=== PATIENT | female | born 1995 | race Hispanic/Latino ===

== ENCOUNTER 2018-08-02 11:27 | Emergency (ER) | payer BC ==
[2018-08-02] MEDS ORDERED: Acetaminophen 500 MG TAB ONE (11:53)
[2018-08-02 12:08] LABS: Bilirubin Negative (Negative); Blood, Urine Trace (Negative); Clarity Slightly Cloudy (Clear); Glucose, Urine (Dipstick) Negative (Negative); Leukocyte Moderate (Negative); Nitrite Negative (Negative); Protein, Urine (Dipstick) Negative (Neg-Trace); Specific Gravity, Urine 1.015 (1.005-1.030); pH, Urine 7.5 (5.0-9.0)
[2018-08-02 12:14] LABS: Bacteria/HPF 1+ HPF (None Seen); RBC/HPF 0-3 HPF (0-3)
[2018-08-02 12:14] LABS: #Basophils 0.1 thou/uL (0.0-0.2); #Eosinphils 0.1 thou/uL (0.0-0.7); #Lymphocytes 1.8 thou/uL (1.20-3.40); #Monocytes 0.6 thou/uL (0.11-0.59); #Neutrophils 5.8 thou/uL (1.40-6.50); %Basophils 1.2 % (0.0-1.0); %Eosinophils 0.7 % (0.0-10.0); %Lymphocytes 21.5 % (21.0-51.0); %Monocytes 6.5 % (0.0-10.0); Hemoglobin 13.8 g/dL (12.0-16.0); Mean Corpuscular HGB CONC 34.8 g/dL (32.0-36.0); Mean Corpuscular Hemoglobin 29.6 pg (27.0-31.0); Mean Platelet Volume 11.2 fL (7.4-10.4); Platelet Count 165 thou/uL (130-400); RBC Distribution Width 12.5 % (11.5-14.5); Red Blood Cell (RBC) Count 4.67 mill/uL (4.20-5.40); White Blood Cell (WBC) Count 8.3 thou/uL (4.8-10.8)
[2018-08-02 12:15] LABS: Hyaline Casts/LPF 0-3 HYALINE CAST LPF (0-3 Hyaline)
[2018-08-02 12:25] LABS: ALT (SGPT) 16 U/L (8-55); AST (SGOT) 12 U/L (5-34); Albumin 4.4 g/dL (3.5-5.0); Alkaline Phosphatase 46 U/L (40-150); Anion Gap 14 mmol/L (10-20); BUN (Urea Nitrogen) 8 mg/dL (7.0-18.7); Bilirubin, Total 0.5 mg/dL (0.2-1.2); Calc. Creatinine Clearance 0 mL/min (70-130); Calcium 9.7 mg/dL (7.8-10.44); Carbon Dioxide 24 mmol/L (22-29); Chloride 103 mmol/L (98-107); Estimated GFR-MDRD Greater than 90; Globulin 3.5 g/dL (2.4-3.5); Glucose 90 mg/dL (70-105); Potassium 3.6 mmol/L (3.5-5.1); Protein, Total 7.9 g/dL (6.0-8.3); Sodium 137 mmol/L (136-145)
== END 2018-08-02 12:58 | disposition home or self-care (01) ==
LOC: SCSER 11:27
DX: O23.41 Unspecified infection of urinary tract in pregnancy, first trimester (principal); Z3A.01 Less than 8 weeks gestation of pregnancy
CPT/HCPCS: 36415; 80053; 81003; 81015; 84702; 85025; 87086; 99283

== ENCOUNTER 2019-04-29 18:53 | Observation (INO) | payer BC, MEDICAID, SELFPAY ==
[2019-04-29] MEDS ORDERED: Ondansetron PF 4 MG/2 ML Vial ONE (19:24)
[2019-04-29 19:39] LABS: Bilirubin Negative (Negative); Blood, Urine Trace (Negative); Clarity Slightly Cloudy (Clear); Glucose, Urine (Dipstick) Negative (Negative); Leukocyte Large (Negative); Nitrite Negative (Negative); Protein, Urine (Dipstick) Negative (Neg-Trace)
[2019-04-29 19:41] LABS: #Basophils 0.1 thou/uL (0.0-0.2); #Eosinphils 0.2 thou/uL (0.0-0.7); #Lymphocytes 1.8 thou/uL (1.20-3.40); #Monocytes 0.6 thou/uL (0.11-0.59); #Neutrophils 4.3 thou/uL (1.40-6.50); %Basophils 1.3 % (0.0-1.0); %Eosinophils 2.2 % (0.0-10.0); %Lymphocytes 25.5 % (21.0-51.0); %Monocytes 8.5 % (0.0-10.0); %Neutrophils 62.4 % (42.0-75.0); Hemoglobin 13.5 g/dL (12.0-16.0); Mean Corpuscular HGB CONC 34.6 g/dL (32.0-36.0); Mean Corpuscular Hemoglobin 29.7 pg (27.0-31.0); Mean Corpuscular Volume 85.7 fL (78.0-98.0); Mean Platelet Volume 10.4 fL (7.4-10.4); Platelet Count 195 thou/uL (130-400); RBC Distribution Width 12.1 % (11.5-14.5); Red Blood Cell (RBC) Count 4.54 mill/uL (4.20-5.40); White Blood Cell (WBC) Count 6.9 thou/uL (4.8-10.8)
[2019-04-29 19:42] LABS: Pregnancy Test - Urine (BHCG) POSITIVE (Negative); Pregu Control Background? CLEAR/WHITE (CLR/WHITE); Pregu Control Bar Appear? YES (CONTROL BAR); Specific Gravity 1.015 (1.002-1.036)
[2019-04-29 19:52] LABS: Bacteria/HPF Rare-Few HPF (None Seen); Epithelial Cast None Seen LPF (None Seen)
[2019-04-29 19:56] LABS: ALT (SGPT) 700 U/L (8-55); AST (SGOT) 518 U/L (5-34); Albumin 4.8 g/dL (3.5-5.0); Alkaline Phosphatase 175 U/L (40-110); Anion Gap 15 mmol/L (10-20); BUN (Urea Nitrogen) 8 mg/dL (7.0-18.7); Bilirubin, Total 1.1 mg/dL (0.2-1.2); CK (CPK) 101 U/L (29-168); Calc. Creatinine Clearance 0 mL/min (70-130); Calcium 9.7 mg/dL (7.8-10.44); Carbon Dioxide 24 mmol/L (22-29); Chloride 102 mmol/L (98-107); Estimated GFR-MDRD Greater than 90; Globulin 3.5 g/dL (2.4-3.5); Glucose 102 mg/dL (70-105); Lipase 39 U/L (8-78); Potassium 3.6 mmol/L (3.5-5.1); Protein, Total 8.3 g/dL (6.0-8.3); Sodium 137 mmol/L (136-145)
--- NOTE | 2019-04-29 20:38 | ULT ---
Gallbladder ultrasound: Multiple grayscale images of right upper quadrant obtained according to protocol. INDICATION: Pain FINDINGS: Liver: Increased echogenicity Gallbladder: Multiple gallstones, with moderate distention Gallbladder wall: Normal. Box's Sign: Positive. Common bile duct is 4 mm, within normal limits of size Ascites: None IMPRESSION: Multiple gallstones within a moderately distended gallbladder, and a positive Box sign. Recommend clinical correlation and, as necessary, surgical consultation for further assessment of associated cholecystitis. Increased echogenicity of the liver indicative of hepatic steatosis.
--- NOTE | 2019-04-29 20:57 | ULT ---
US Pelvic transabdominal and transvaginal, with Doppler color flow and spectral analysis HISTORY: Pain COMPARISON: None Within the uterus, there is a small hypoechoic focus indicative of a gestational sac with a small int ernal yolk sac as well as a pole with cardiac activity of 106 bpm documented. Sonographic findings indicate gestational age of approximately 6 weeks 0 days. Doppler evaluation rev eals flow to each ovary. No evidence of a significant subchorionic hemorrhage or significant free pelvic fluid. IMPRESSION: Early live intrauterine gestation, as above. Recommend continued age-appropriate follow-u p Transcribed Date/Time: 04/29/2019 9:02 PM
[2019-04-29] MEDS ORDERED: cefTRIAXone\\ROCEPHIN 2 GM VIAL ONE (21:14)
[2019-04-29] MEDS ORDERED: Sodium Chloride 0.9% 100 ML ONE (21:15)
[2019-04-29] MEDS ORDERED: Ondansetron PF 4 MG/2 ML Vial IVP PRN (22:54)
[2019-04-29 22:55] VITALS: BMI 31.2
[2019-04-29] MEDS ORDERED: Morphine 4 MG/ML VIAL SLOW IVP PRN (22:56)
[2019-04-29] MEDS: Sodium Chloride 0.9% 1,000 ML IV SCH (23:21)
[2019-04-30 05:11] LABS: ALT (SGPT) 541 U/L (8-55); AST (SGOT) 276 U/L (5-34); Albumin 3.6 g/dL (3.5-5.0); Alkaline Phosphatase 142 U/L (40-110); Anion Gap 7 mmol/L (10-20); BUN (Urea Nitrogen) 5 mg/dL (7.0-18.7); Bilirubin, Total 0.6 mg/dL (0.2-1.2); Calc. Creatinine Clearance 146 mL/min (70-130); Calcium 8.5 mg/dL (7.8-10.44); Carbon Dioxide 25 mmol/L (22-29); Chloride 107 mmol/L (98-107); Estimated GFR-MDRD Greater than 90; Globulin 2.8 g/dL (2.4-3.5); Glucose 97 mg/dL (70-105); Lipase 24 U/L (8-78); Protein, Total 6.4 g/dL (6.0-8.3); Sodium 135 mmol/L (136-145)
[2019-04-30 05:12] LABS: #Basophils 0.1 thou/uL (0.0-0.2); #Eosinphils 0.2 thou/uL (0.0-0.7); #Lymphocytes 1.8 thou/uL (1.20-3.40); #Monocytes 0.5 thou/uL (0.11-0.59); #Neutrophils 2.7 thou/uL (1.40-6.50); %Basophils 1.2 % (0.0-1.0); %Eosinophils 3.5 % (0.0-10.0); %Lymphocytes 34.6 % (21.0-51.0); %Monocytes 8.7 % (0.0-10.0); %Neutrophils 52.1 % (42.0-75.0); Hemoglobin 11.4 g/dL (12.0-16.0); Mean Corpuscular HGB CONC 34.3 g/dL (32.0-36.0); Mean Corpuscular Hemoglobin 30.2 pg (27.0-31.0); Mean Corpuscular Volume 87.9 fL (78.0-98.0); Platelet Count 143 thou/uL (130-400); RBC Distribution Width 12.2 % (11.5-14.5); Red Blood Cell (RBC) Count 3.76 mill/uL (4.20-5.40); White Blood Cell (WBC) Count 5.2 thou/uL (4.8-10.8)
[2019-04-30 08:06] LABS: HBCM Index 0.07 S/CO (0-0.79); HBSAg Index 0.17 S/CO (0-0.99); Hep A IgM AB Non-Reactive (NonReactive); Hep A IgM S/CO 0.23 S/CO (0-0.79); Hep B Surf Ag Non-Reactive S/CO (NonReactive); Hep C IgG Ab Non-Reactive (NonReactive); Hepatitis B Core IgM Abs Non-Reactive (NonReactive)
--- NOTE | 2019-04-30 13:05 | HP ---
CHIEF COMPLAINT: Right upper quadrant pain. HISTORY OF PRESENT ILLNESS: This is a 23-year-old female, who presents with acute onset right upper quadrant pain last night. She had a pasta meal for lunch. Pain described as 8/10, sharp in the right upper quadrant radiating around to her right back. Not associated with fever, chills, nausea, or vomiting. No diarrhea. She is newly diagnosed as with approximate 6-week gestational age. Her liver tests were elevated. She has no hepatitis exposure. No previous known history of jaundice or pancreatitis. MEDICAL HISTORY: Otherwise negative. SURGICAL HISTORY: Negative. MEDICATIONS: vitamins. ALLERGIES: NO KNOWN DRUG ALLERGIES. SOCIAL HISTORY: No smoking, alcohol, or other drugs. REVIEW OF SYSTEMS: Ten-system review of systems is otherwise negative unless described above. PHYSICAL EXAMINATION: VITAL SIGNS: Blood pressure is 100/66, pulse 83, respirations 14. She is afebrile. HEENT: Sclerae are anicteric. Oropharynx, clear. NECK: No lymphadenopathy. CHEST: Clear. HEART: Regular rate and rhythm. ABDOMEN: Soft, minimally tender in the right upper quadrant. No ischemia or edema to extremities. LABORATORY DATA: White blood cell count is 5, hemoglobin 11. Sodium 135, potassium is 4.0, creatinine 0.67. AST and ALT are 276 and 541 with an alkaline phosphatase of 142. Normal lipase. IMAGING STUDIES: Ultrasound shows gallstones, normal common bile duct. ASSESSMENT: Likely acute cholecystitis with uncertain etiology of this elevation of liver tests. Discussed with Dr. Selby. Could be hepatitis, could be medication reaction, could be related to . Given the location of her symptoms, certainly biliary colic or even less likely common bile duct stone is a possibility. PLAN: Today, laparoscopic cholecystectomy with intraoperative cholangiogram. Risks, benefits, and alternatives were discussed. She does understand that there were teratogenic effects potentially on the baby with surgery during the 1st trimester. However, this is controversial, mostly hypothetical, and there has never been any scientific proof that is the case, in fact society of endoscopic surgeons recommend laparoscopic procedures in the 1st trimester of if needed. Risks, benefits, and alternatives were discussed. She gives consent. We will do this today. Job ID: [id number]
[2019-04-30] MEDS ORDERED: Fentanyl 100 MCG/2 ML VIAL ONE ×4 (15:00→17:09)
[2019-04-30] MEDS ORDERED: Iothalamate Meglumine 60% 50 ML VIAL FS ONE (15:04)
[2019-04-30] MEDS ORDERED: Bupivacaine/Epinephrine 0.25% 30 ML VIAL ONE (15:04)
[2019-04-30] MEDS ORDERED: Sodium Chloride 0.9% 100 ML ONE (15:12)
[2019-04-30] MEDS ORDERED: cefOXitin 2 GM VIAL ONE (15:12)
--- NOTE | 2019-04-30 16:24 | RAD ---
Intraoperative cholangiogram fluoroscopy HISTORY: Acute cholecystitis findings: Intraoperative fluoroscopy was provided for cholangiogram as p erformed by Dr. Davenport. Single spot fluoroscopic image shows distended common bile duct to be opacified without filling defects reliably demonstrated, aside from a meniscus at the central portion of the duct. Contrast has not passed into the duodenum. Consider impacted stone at the ampulla or other cause of biliary obstruction. Fluoroscopy time 14 seconds.
[2019-04-30] MEDS ORDERED: Dextrose 5% in Water 1,000 ML IV PRN (17:49)
[2019-04-30] MEDS ORDERED: Promethazine HCl 25 MG/ML VIAL IM PRN (17:49)
[2019-04-30] MEDS ORDERED: Ondansetron PF 4 MG/2 ML Vial IVP PRN (17:49)
[2019-04-30] MEDS ORDERED: Morphine 4 MG/ML VIAL SLOW IVP PRN (17:49)
[2019-04-30] MEDS ORDERED: Calcium Carbonate 500 MG ChewTAB PO PRN (17:49)
[2019-04-30] MEDS ORDERED: HYDROcodone/Acetaminophen 7.5/325 mg Tablet PO PRN (17:49)
[2019-04-30] MEDS ORDERED: Mag-Al 1200 mg/1200 mg/30 ML UDCUP PO PRN (17:49)
[2019-04-30] MEDS ORDERED: Dextrose 50% Abboject 50 ML SYRINGE SLOW IVP PRN (17:49)
[2019-04-30] MEDS: D5 1/2 NS w/20 mEq KCL 1,000 ML IV SCH ×2 (18:26→19:48)
[2019-04-30] MEDS: Famotidine 20 MG TAB PO SCH (19:47)
[2019-04-30] MEDS: Morphine 2 MG/ML SYRINGE SLOW IVP PRN (19:49)
[2019-04-30] MEDS: Famotidine/PF 20 mg/2ml Vial SLOW IVP SCH (19:49)
--- NOTE | 2019-04-30 23:17 | OP ---
DATE OF PROCEDURE: 04/30/2019 PREOPERATIVE DIAGNOSIS: Acute cholecystitis. POSTOPERATIVE DIAGNOSES: Acute cholecystitis and choledocholithiasis. PROCEDURES PERFORMED: Laparoscopic cholecystectomy with intraoperative cholangiogram. ANESTHESIA: General. ESTIMATED BLOOD LOSS: Minimal. COMPLICATIONS: None. SPECIMENS: Gallbladder. FINDINGS: Distal common bile duct stone with obstruction, dilated common bile duct and intrahepatic ducts. DESCRIPTION OF PROCEDURE: The patient was taken to the operating room and laid supine on the operating room table. After general anesthetic was obtained, the abdomen was shaved, prepped, and draped in a sterile fashion. An incision was made above the umbilicus. Cautery was used to dissect down to and score the fascia. Abdominal cavity was entered bluntly using a Diane clamp. Holding stitch of PDS was placed on each side of the fascia. Victor M trocar was placed. High-flow pneumoperitoneum was obtained. Upper midline 5 mm port as well as two right upper quadrant 5 mm ports were placed under direct visualization. The gallbladder was retracted from the gallbladder fossa. The peritoneum was opened anteriorly and posteriorly. The critical view of triangle was seen showing only the cystic duct and cystic artery branching medial to lateral and no other branching structures. A clip was placed on the cystic duct. A small ductotomy was made just proximal to that. A cholangiocatheter was brought in through separate stab incision and placed in the cystic duct and cholangiogram was performed. No contrast flow into the duodenum. There was dilated common and intrahepatic ducts. There is what looks like an ellipsis sign distally consistent with the stone. The cholangiocatheter was removed. Two clips were placed proximally on the cystic duct and cut using laparoscopic scissors. Cystic artery was taken using 2 clips proximally and one clip distally, and cut using laparoscopic scissors. Cautery was used to dissect the gallbladder out of the gallbladder fossa. The gallbladder was placed in an Endo catch bag and brought out through the Victor M. There was no bleeding in the liver bed. All port sites were infiltrated using local anesthetic. All ports were removed under camera visualization. Pneumoperitoneum was let down.. PDS used to close the fascial defect above the umbilicus. All incisions were irrigated and closed using 4-0 Monocryl and Dermabond. The patient was sent to Recovery in stable condition. All instrument counts, needle counts, lap counts were correct. She will need a postop ERCP. Job ID: [id number]
--- NOTE | 2019-05-01 01:40 | CON ---
DATE OF CONSULTATION: 04/30/2019 REASON FOR CONSULTATION: Right upper quadrant abdominal pain, choledocholithiasis. CONSULTING PROVIDER: Ankit Davenport MD. HISTORY OF PRESENT ILLNESS: The patient is a 23-year-old female with no significant past medical history, presenting with complaints of right upper quadrant/midepigastric abdominal pain. She states that approximately 2 weeks ago she had acute onset of increased midepigastric abdominal pain characterized as a pressure type pain with sudden onset and occurred intermittently throughout that day. However, over the next 3-4 days, it slowly resolved to more of a queasy type sensation and ultimately resolved at the end of the 4th day. However, approximately 1 week ago, she had recurrence of this midepigastric abdominal pain that has since persisted over the last week, but currently intermittently every single day for the last 5-7 days. Again, the pain was characterized as more of a pressure type pain, radiated to the right upper quadrant and reached a severity of 10/10. The pain was worse with consumption of either solids or liquids, lying down and sitting and followed a crescendo decrescendo pattern. The pain was only better with increased walking around. With worsening of the pain over the last week, she went to the [facility] ER and was noted to have significantly elevated LFTs as well as an abdominal ultrasound showing possible cholecystitis. She was ultimately transferred to [facility] for evaluation and subsequently underwent cholecystectomy on April 30, 2019, However, during the course of the procedure, an intraoperative cholangiogram was performed which did show a filling defect within the distal common bile duct consistent with choledocholithiasis. At the current time, the patient states that she has increased abdominal pain, but located primarily at the trocar sites from today's earlier surgical procedure. Otherwise, she denies any nausea, vomiting, fevers, chills, hematemesis, melena, hematochezia, dysphagia, odynophagia, or weight loss. She does still have some abdominal bloating that is a residual left over from this last week as well. REVIEW OF SYSTEMS: A 10-category review of systems was obtained with all responses negative except for the pertinent positives as listed in HPI. PAST MEDICAL HISTORY: None. PAST SURGICAL HISTORY: Laparoscopic cholecystectomy today. FAMILY HISTORY: Denies any GI malignancies. SOCIAL HISTORY: Denies any tobacco, alcohol, or illicit drug use. The patient is currently 6 weeks . OUTPATIENT MEDICATIONS: vitamins. ALLERGIES: NO KNOWN DRUG ALLERGIES. PHYSICAL EXAMINATION: VITAL SIGNS: Temperature 98.3, pulse 81, blood pressure 117/78, respiratory rate 18, saturating 98% on room air. GENERAL: The patient is lying in bed, in no acute distress. Alert and oriented x4. HEENT: Normocephalic, atraumatic. NECK: Supple. No JVD or scleral icterus noted. CARDIOVASCULAR: Regular rate and rhythm with no discernible murmurs, gallops, or rubs. RESPIRATORY: Clear to auscultation bilaterally with no discernible wheezes or rales. ABDOMEN: Normoactive bowel sounds. Soft, nondistended. Tenderness to palpation in the midepigastric, left and right flanks over the trocar sites from the surgery earlier today. EXTREMITIES: No cyanosis, clubbing, or edema. LABORATORY DATA: CBC with a white blood cell count of 5.2, hemoglobin of 11.4, hematocrit 33.1, platelets 143. Chemistry with a sodium of 135, potassium 4, chloride 107, CO2 of 25, BUN 5, creatinine 0.67. AST 276, ALT 541, alkaline phosphatase 142, total bilirubin 0.6. Beta HCG 9355. Albumin 3.6, lipase 24. IMAGING DATA: Right upper quadrant ultrasound obtained on April 29, 2019, showed multiple gallstones within the gallbladder with moderate distention. However, did exhibit a normal gallbladder wall, but with Box sign positive. Common bile duct was measured at 4 mm in size with no evidence of ascites. ASSESSMENT AND PLAN: The patient is a 23-year-old female with no significant past medical history, presenting with cholelithiasis and choledocholithiasis seen on intraoperative cholangiogram. Choledocholithiasis. The patient is presenting with intermittent right midepigastric and right upper quadrant abdominal pain has been going on for the last 2 weeks, characterized as a pressure type pain and generating a crescendo decrescendo pattern concerning for biliary pathology. She ultimately went to the [facility] ER with significantly elevated AST and ALT, but relatively normal alkaline phosphatase and total bilirubin with a right upper quadrant ultrasound showing a common bile duct of 4 mm (nondilated). This was felt to be more due to cholecystitis rather than choledocholithiasis as the labs and the imaging did not support the latter diagnosis. However, the patient underwent a laparoscopic cholecystectomy on April 30, 2019, with intraoperative cholangiogram showing a probable filling defect within the distal common bile duct consistent with choledocholithiasis. RECOMMENDATION: 1. We would place the patient on a liquid diet today and n.p.o. at midnight in preparation for the ERCP tomorrow. 2. We would plan for ERCP with stone extraction tomorrow. 3. We will take special care to limit radiation exposure given the patient's concurrent . 4. We would continue with broad-spectrum antibiotics as you are doing. 5. Pain control per primary team. 6. We will continue to follow. Please call with any questions. Job ID: [id number]
[2019-05-01 05:14] LABS: ALT (SGPT) 628 U/L (8-55); AST (SGOT) 314 U/L (5-34); Albumin 3.9 g/dL (3.5-5.0); Alkaline Phosphatase 173 U/L (40-110); Anion Gap 12 mmol/L (10-20); BUN (Urea Nitrogen) Less than 4 mg/dL (7.0-18.7); Bilirubin, Total 3.4 mg/dL (0.2-1.2); Calc. Creatinine Clearance 146 mL/min (70-130); Calcium 9.1 mg/dL (7.8-10.44); Carbon Dioxide 23 mmol/L (22-29); Chloride 101 mmol/L (98-107); Estimated GFR-MDRD Greater than 90; Globulin 3.1 g/dL (2.4-3.5); Glucose 115 mg/dL (70-105); Potassium 3.6 mmol/L (3.5-5.1); Sodium 132 mmol/L (136-145)
[2019-05-01] MEDS ORDERED: Levofloxacin 500 mg/D5W 100 ml Premix Bag ONE (08:30)
[2019-05-01] MEDS ORDERED: Morphine 2 MG/ML SYRINGE ONE (08:36)
[2019-05-01] MEDS ORDERED: Rocuronium Bromide 10 MG/ML (10ML VIAL) ONE (09:00)
[2019-05-01] MEDS ORDERED: Glycopyrrolate 0.2 MG/ML 5 ML SYRINGE ONE (09:00)
[2019-05-01] MEDS ORDERED: Ondansetron PF 4 MG/2 ML Vial ONE (09:00)
[2019-05-01] MEDS ORDERED: diphenhydrAMINE 50 MG/ML VIAL ONE (09:00)
[2019-05-01] MEDS ORDERED: PROPOFOL 200 MG/20 ML VIAL ONE (09:00)
[2019-05-01] MEDS: Famotidine/PF 20 mg/2ml Vial SLOW IVP SCH ×2 (09:00→20:48)
[2019-05-01] MEDS ORDERED: Dexamethasone 20 MG/5 ML VIAL ONE (09:00)
[2019-05-01] MEDS ORDERED: Promethazine HCl 25 MG/ML VIAL ONE (09:25)
[2019-05-01] MEDS ORDERED: Fentanyl 100 MCG/2 ML VIAL ONE (09:25)
[2019-05-01] MEDS ORDERED: Indomethacin 50 MG SUPP ONE (09:28)
[2019-05-01] MEDS ORDERED: Ondansetron HCl/PF 4 MG/2 ML Vial IVP PRN ×2 (09:31→10:28)
[2019-05-01] MEDS ORDERED: Promethazine HCl 25 MG/ML VIAL IM PRN ×2 (09:31→10:28)
[2019-05-01] MEDS ORDERED: PACU-Morphine 4MG/ML VIAL SLOW IVP PRN (09:31)
[2019-05-01] MEDS ORDERED: HYDROmorphone 2 MG/ML VIAL SLOW IVP PRN (09:31)
[2019-05-01] MEDS ORDERED: Promethazine HCl 25 MG/ML VIAL SLOW IVP PRN (09:31)
[2019-05-01] MEDS ORDERED: Indomethacin 50 MG SUPP PR SCH (09:49)
[2019-05-01] MEDS ORDERED: Iothalamate Meglumine 60% 50 ML VIAL FS ONE (09:50)
[2019-05-01] MEDS ORDERED: SUGAMMADEX SODIUM 200 MG/2 ML VIAL ONE (10:21)
--- NOTE | 2019-05-01 10:30 | RAD ---
ERCP 3 views: DATE: 05/01/2019 HISTORY: 23-year-old female with possibility of obstruction of distal common bile duct by choledocholithiasis. FINDINGS: Cannulation and contrast injection into ampulla demonstrates faint filling of common bile duct, parti ally obscured by the endoscope and partially obscured by apron-like broad radiolucent shield. Next, balloon is inflated at the common hepatic duct. Final image demonstrates faint residual contrast mate rial throughout common duct and intrahepatic biliary radicles. There is mild ectasia of the common duct and biliary radicles. IMPRESSION: 1. Suboptimal visualization of lumen of common bile duct. 2. Mild diffuse ectasia of biliary tree. 3. Status post balloon sweeping of common hepatic duct and common bile duct.
[2019-05-01] MEDS: Famotidine 20 MG TAB PO SCH ×2 (11:51→20:48)
--- NOTE | 2019-05-01 16:43 | OP ---
DATE OF PROCEDURE: 05/01/2019 PROCEDURE PERFORMED: ERCP with sphincterotomy and extraction of biliary calculus. INDICATION FOR PROCEDURE: Choledocholithiasis seen on intraoperative cholangiogram. DESCRIPTION OF PROCEDURE: After the risks and benefits of the procedure were explained to the patient including risks of bleeding, infection, perforation, reactions to anesthesia, aspiration, post-ERCP pancreatitis, and/or pain, informed consent was obtained. The patient was then taken to the endoscopy suite, where general anesthesia was given with endotracheal tube intubation. Once the patient was intubated and sedated, she was maneuvered into the prone position in anticipation of the ERCP. Once in appropriate position, the standard duodenoscope was introduced into the mouth with the intubation of the esophagus, stomach, and the proximal small intestines with the findings listed below. The patient tolerated the procedure well with no immediate perioperative complications. Upon completion of the procedure, all equipment was removed from the patient and she was transferred to PACU in satisfactory condition. FINDINGS: EGD findings: Limited views were obtained from the esophagus, stomach, and the proximal small intestines given the side-viewing aspect of the duodenal scope of the views obtained. Normal-appearing mucosa was seen in the proximal, mid, and distal esophagus. Normal-appearing mucosa was also seen within the gastric cardia, fundus, body, antrum, and within the duodenal bulb and second portion of the duodenum. There was no evidence of erosions, ulcerations, mass lesions, or active/recent bleeding. ERCP findings: The ampulla of Vater was successfully identified within the second portion of the duodenum and did not display any abnormal characteristics. Using a 5 mm Ultratome, the ampulla was then successfully cannulated with placement of a guidewire into the intrahepatic biliary tree. Once the guidewire was in place, a cholangiogram was performed, which illuminated the biliary tree showing that the common bile duct was mildly dilated at approximately 8 to 9 mm. However, there was no obvious filling defects seen initially. Given the evidence of the biliary calculus on intraoperative cholangiogram, a generous sphincterotomy was then performed. Using an exchange technique, the Ultratome was then exchanged for a 9 to 12 mm biliary balloon. Once the exchange was complete, the balloon was advanced into the common bile duct with successive balloon sweeps yielding small white stone debris, but no observed large stones or sludge. At the end of the successive balloon sweeps, an occlusion cholangiogram was then performed, which showed no additional filling defects either within the intrahepatic or extrahepatic biliary tree. The balloon was then removed from the common bile duct with a repeat fluoroscopic shot showing good drainage of the biliary system. All equipment was then removed from the patient and she was transferred to PACU. IMPRESSION: Choledocholithiasis with small white stone debris, status post successful sphincterotomy and balloon extraction of biliary calculus. RECOMMENDATIONS: 1. We would monitor the patient in the postoperative setting for post-ERCP pancreatitis. 2. We would advance the patient's diet to a full liquid diet for today and advance tomorrow as tolerated. 3. Pain control per primary team. 4. We will continue antibiotics for the course of today and then additional antibiotics per General Surgery Service for her laparoscopic cholecystectomy. We will continue to follow. Please call with any questions. Job ID: [id number]
--- NOTE | 2019-05-01 17:09 | PRG ---
DATE OF SERVICE: 05/01/2019 SUBJECTIVE: The patient is returned from ERCP. She is feeling better now. She has been able to tolerate some clear liquids. No nausea or vomiting. Pain is improved. OBJECTIVE: Temperature is 98.4, pulse 73, blood pressure 90/62. She was awake and alert. She looks good. Abdomen, soft, nondistended, nontender. ASSESSMENT: Doing well. PLAN: Advance diet. Home tomorrow. Job ID: [id number]
[2019-05-01] MEDS: Morphine 2 MG/ML SYRINGE SLOW IVP PRN (20:47)
[2019-05-01] MEDS: D5 1/2 NS w/20 mEq KCL 1,000 ML IV SCH (23:38)
[2019-05-02] MEDS: Famotidine 20 MG TAB PO SCH (09:12)
[2019-05-02] MEDS: Famotidine/PF 20 mg/2ml Vial SLOW IVP SCH (09:14)
[2019-05-02] MEDS: D5 1/2 NS w/20 mEq KCL 1,000 ML IV SCH (13:25)
[2019-05-02 15:46] VITALS: BP 110/70; TEMP 98
[2019-05-02 21:36] LABS: Chlamydia by PCR DETECTED (NotDetected); GC by PCR DETECTED (NotDetected)
--- NOTE | 2019-05-03 13:59 | DIS ---
DATE OF ADMISSION: 04/29/2019 DATE OF DISCHARGE: 05/02/2019 DISCHARGE DIAGNOSES: Acute cholecystitis, choledocholithiasis, . PROCEDURES DURING ADMISSION: Laparoscopic cholecystectomy, intraoperative cholangiogram, endoscopic retrograde cholangiopancreatography with sphincterotomy and stone extraction. HOSPITAL COURSE: The patient was admitted, given IV fluids, IV antibiotics, taken to the operating room, where she underwent a laparoscopic cholecystectomy. Cholangiogram showed common duct stones. GI was consulted. She underwent an ERCP the following day. Postoperatively, she is doing well. Her pain is controlled on p.o. medications. Discharged home on hydrocodone and Zofran. She will follow up with Dr. Davenport in 2 weeks. Job ID: [id number]
== END 2019-05-02 17:22 | disposition home or self-care (01) ==
LOC: SCSER 18:53 → SJJU 22:33
PROVIDERS: ADMIT Surgery; ATTEND Surgery
PROC: 0FT44ZZ Resection of Gallbladder, Percutaneous Endoscopic Approach (ICD-10-PCS; principal; 2019-04-30)
PROC: BF031ZZ Plain Radiography of Gallbladder and Bile Ducts using Low Osmolar Contrast (ICD-10-PCS; 2019-04-30)
PROC: 0FC98ZZ Extirpation of Matter from Common Bile Duct, Via Natural or Artificial Opening Endoscopic (ICD-10-PCS; 2019-05-01)
DX: O99.611 Diseases of the digestive system complicating pregnancy, first trimester (principal); K80.47 Calculus of bile duct with acute and chronic cholecystitis with obstruction; Z3A.01 Less than 8 weeks gestation of pregnancy
CPT/HCPCS: 36415; 47532; 74330; 76705; 76856; 80053; 80074; 81003; 81015; 81025; 82550; 83690; 84702; 85025; 86900; 86901; 87086; 87480; 87491; 87510; 87591; 87660; 88304; 93005; 96361; 96365; 96375; 96376; G0378; J0694; J0696; J1100; J1200; J1956; J2270; J2405; J2550; J2704; J3010; J3490; S0028

== ENCOUNTER 2019-07-04 16:36 | Emergency (ER) | payer OTHER ==
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
== END 2019-07-04 19:27 | disposition home or self-care (01) ==
LOC: ERS 16:36
DX: S00.03XA Contusion of scalp, initial encounter (principal); S00.83XA Contusion of other part of head, initial encounter; F32.9 Major depressive disorder, single episode, unspecified; Y04.8XXA Assault by other bodily force, initial encounter
CPT/HCPCS: 70450

== ENCOUNTER 2020-05-20 12:12 | Emergency (ER) | payer OTHER ==
--- NOTE | 2020-05-20 12:44 | CT ---
CT BRAIN NONCONTRAST: DATE: 05/20/2020 HISTORY: 24-year-old female status post syncope FINDINGS: There is no evidence of acute intra-axial or extra-axial hemorrhage. There is no midline shift or any other mass effect. There is no extra-axial fluid collection. The ventricles are normal in size and configuration. The tympanomastoid cavities, and the upper portions of the paranasal sinuses included in these images, are grossly clear. Calvarium is intact. IMPRESSION: Normal.
--- NOTE | 2020-05-20 13:09 | RAD ---
EXAM: Chest one view: HISTORY: Syncope COMPARISON: 02/24/2013 FINDINGS: Heart size: Within normal limits. Lungs: Clear of acute process. No evidence for confluent lobar pneumonia, significant pleural effusion, acute edema, or pneumothorax , or other significant acute process. IMPRESSION: No significant acute intrathoracic disease.
[2020-05-20 13:54] LABS: Bilirubin Negative (Negative); Blood, Urine Negative (Negative); Clarity Turbid (Clear); Glucose, Urine (Dipstick) Normal (Negative); Ketone, Urine Negative (Negative); Leukocyte 500 Leu/uL (Negative); Nitrite Negative (Negative); Protein, Urine (Dipstick) Negative (Neg-Trace); Urobilinogen Normal mg/dL (Less than 2); WBC/HPF Greater than 50 HPF (0-3)
[2020-05-20 13:54] LABS: BHCG - Serum POSITIVE (NEGATIVE); Pregs Control Background? CLEAR/WHITE (CLR/WHITE); Pregs Control Bar Appear? YES (CONTROL BAR)
[2020-05-20 14:00] LABS: ALT (SGPT) 30 U/L (8-55); AST (SGOT) 16 U/L (5-34); Albumin 3.7 g/dL (3.5-5.0); Alkaline Phosphatase 52 U/L (40-110); Anion Gap 11 mmol/L (10-20); BUN (Urea Nitrogen) 6 mg/dL (7.0-18.7); Bilirubin, Total 0.5 mg/dL (0.2-1.2); Calc. Creatinine Clearance 0 mL/min (70-130); Calcium 8.8 mg/dL (7.8-10.44); Carbon Dioxide 24 mmol/L (22-29); Chloride 104 mmol/L (98-107); Estimated GFR-MDRD Greater than 90; Globulin 3.4 g/dL (2.4-3.5); Glucose 88 mg/dL (70-105); Potassium 4.3 mmol/L (3.5-5.1); Protein, Total 7.1 g/dL (6.0-8.3); Sodium 135 mmol/L (136-145)
[2020-05-20 14:04] LABS: Bacteria/HPF 3+ HPF (None Seen)
[2020-05-20 14:07] LABS: #Eosinphils 0.1 thou/uL (0.0-0.7); #Lymphocytes 1.5 thou/uL (1.20-3.40); #Monocytes 0.5 thou/uL (0.11-0.59); #Neutrophils 7.2 thou/uL (1.40-6.50); %Basophils 0.5 % (0.0-1.0); %Eosinophils 0.7 % (0.0-10.0); %Lymphocytes 15.9 % (21.0-51.0); %Monocytes 5.2 % (0.0-10.0); %Neutrophils 77.6 % (42.0-75.0); Hemoglobin 12.5 g/dL (12.0-16.0); Mean Corpuscular HGB CONC 35.1 g/dL (32.0-36.0); Mean Corpuscular Hemoglobin 31.1 pg (27.0-31.0); Mean Corpuscular Volume 88.8 fL (78.0-98.0); Mean Platelet Volume 9.8 fL (7.4-10.4); Platelet Count 148 thou/uL (130-400); RBC Distribution Width 12.9 % (11.5-14.5); White Blood Cell (WBC) Count 9.2 thou/uL (4.8-10.8)
--- NOTE | 2020-05-20 14:51 | ULT ---
ULTRASOUND OBSTETRICAL LIMITED: DATE: 05/20/2020 HISTORY: 24-year-old female with positive test. Suspected ectopic . FINDINGS: Maternal adnexa: Not visualized number: parikh lie: Footling breech Maternal cervix: 4 cm. Closed. Placenta: Anterior. No placenta previa. Amniotic fluid volume: EDWIGE = 13cm heart rate: 136 bpm The following anatomy is visualized, with no evidence of anomalies: Bladder, stomach, and three-vessel cord. The rest of anatomy was not evaluated. biometry: Biparietal diameter (BPD): 4.6 cm 19 w 6 d Head circumference (HC): 17.5 cm 20 w 0 d Abdominal circumference (AC): 16.7 cm 21 w 5 d Femur length (FL): 3.5 cm 21 w 1 d Average ultrasound age (AUA): 20 w 5 d Estimated date of delivery (JERONIMO): 10/02/2020 Estimated weight (EFW): 409 g +/- 61 g IMPRESSION: 1) Live 2nd trimester intrauterine gestation. 2) Estimated gestational age of 20 weeks, 5 days 3) footling breech lie.
== END 2020-05-20 15:31 | disposition home or self-care (01) ==
LOC: ERS 12:12
DX: O23.42 Unspecified infection of urinary tract in pregnancy, second trimester (principal); O99.891 Other specified diseases and conditions complicating pregnancy; R55 Syncope and collapse; O99.342 Other mental disorders complicating pregnancy, second trimester; F32.9 Major depressive disorder, single episode, unspecified; Z3A.20 20 weeks gestation of pregnancy
CPT/HCPCS: 36415; 70450; 71045; 76815; 80053; 81003; 81015; 84146; 84702; 84703; 85025; 86900; 86901

== ENCOUNTER 2020-07-22 22:14 | Day surgery (SDC) | payer OTHER ==
[2020-07-22] MEDS ORDERED: hydrALAZINE 20 MG/ML VIAL SLOW IVP PRN (22:29)
--- NOTE | 2020-07-22 22:30 | PDOC.LDHP ---
Labor and Delivery H&P Chief complaint: abdominal pain HPI: 25 yo G P presents to L&D @ 29.6wks EGA for evaluation of abdominal pain. She has had 3 days of diarrhea. She states that this afternoon she started having cramping abdominal pain in the top of her abdomen that is sharp and painful, intermittent, and coming a couple times per hour. There is also pain in the bilateral lower abdomen that is less sharp than the top. She has a history of cholecystitis s/p cholecystectomy and nephrolithiasis both in 2019. She denies vomiting, chest pain, shortness of breath, abnormal vaginal bleeding or discharge, decreased movement. Current gestational age (weeks): 29 (6) Due date: 10/07/20 (US @ [facility]) Dating criteria: second trimester ultrasound Grav: 5 Para: 4 OB History Details: Short IPI. Most recent delivery in 2019. Current complications: other (No care) Abnormal US findings: No Past Medical History: None Current medications: pre- vitamins Previous surgical history: cholecystectomy Allergies/Adverse Reactions: Allergies Allergy/AdvReac Type Severity Reaction Status Date / Time No Known Allergies Allergy Verified 07/22/20 22:32 Social history: none - Physical Exam Vital signs reviewed and normal: yes General: NAD, resting Heart: RRR Lungs: CTAB Abdomen: gravid Extremeties: no edema FHT: category 1 - OB Labs Blood type: B RH: positive Antibody Screen: unknown HIV: unknown RPR: unknown HEPSAg: unknown 1 hour GCT: unknown GBS: unknown - Assessment Gastroenteritis 3T sIUP - Plan -: Gastroenteritis: - 1L LR - Recommend increased oral hydration. 3T : - inadequate care. Has appt with DIRECTOR ATHLETIC Chinchilla Farmer on Friday. - Recommend outpatient f/u and care. HPV positive H/o gonorrhea 03/2020 s/p treatment - Concerned about whether the infection was adequately treated. Swabs taken. H/o COVID-19 infection 12/2019 UPDATE: - patient monitored for 2 hours. - Cramping significantly improved after fluid. - CBC, BMP WNL - Recommend outpatient care and will f/u on GC/CT swabs once resulted. Lilo VASQUEZ PGY2 This plan was discussed with Dr. Coppola attending. Addendum - Attending - Attending Attestation Date/Time: 07/23/20 0122 I personally evaluated the patient and discussed the management with Dr. Escudero. I agree with the History, Examination, Assessment and Plan documented above.
[2020-07-22 22:42] VITALS: BP 109/65; TEMP 98; BMI 31.2
[2020-07-22] MEDS: Lactated Ringer's 1,000 ML IV SCH ×2 (23:05→23:54)
[2020-07-22 23:23] LABS: #Basophils 0.1 thou/uL (0.0-0.2); #Eosinphils 0.1 thou/uL (0.0-0.7); #Lymphocytes 2.1 thou/uL (1.20-3.40); #Monocytes 0.5 thou/uL (0.11-0.59); #Neutrophils 5.1 thou/uL (1.40-6.50); %Basophils 0.7 % (0.0-1.0); %Eosinophils 1.1 % (0.0-10.0); %Lymphocytes 26.3 % (21.0-51.0); %Monocytes 6.6 % (0.0-10.0); %Neutrophils 65.2 % (42.0-75.0); Hemoglobin 11.5 g/dL (12.0-16.0); Mean Corpuscular HGB CONC 34.8 g/dL (32.0-36.0); Mean Corpuscular Hemoglobin 28.2 pg (27.0-31.0); Mean Platelet Volume 9.5 fL (7.4-10.4); Platelet Count 177 thou/uL (130-400); RBC Distribution Width 11.9 % (11.5-14.5); Red Blood Cell (RBC) Count 4.08 mill/uL (4.20-5.40); White Blood Cell (WBC) Count 7.8 thou/uL (4.8-10.8)
[2020-07-22 23:42] LABS: Anion Gap 15 mmol/L (10-20); BUN (Urea Nitrogen) 7 mg/dL (7.0-18.7); Calc. Creatinine Clearance 167 mL/min (70-130); Calcium 8.7 mg/dL (7.8-10.44); Carbon Dioxide 22 mmol/L (22-29); Chloride 105 mmol/L (98-107); Glucose 94 mg/dL (70-105); Potassium 3.7 mmol/L (3.5-5.1); Sodium 138 mmol/L (136-145)
[2020-07-23 20:24] LABS: Chlamydia by PCR DETECTED (NotDetected); GC by PCR Not Detected (NotDetected)
== END 2020-07-23 01:25 | disposition home or self-care (01) ==
LOC: L&D/OP 22:14
PROVIDERS: ATTEND Obstetrics & Gynecology
DX: O99.613 Diseases of the digestive system complicating pregnancy, third trimester (principal); K52.9 Noninfective gastroenteritis and colitis, unspecified; Z3A.39 39 weeks gestation of pregnancy; Z86.19 Personal history of other infectious and parasitic diseases
CPT/HCPCS: 36415; 80048; 85025; 87491; 87591